=== PATIENT | male | born 1950 | race Caucasian/White ===

== ENCOUNTER 2017-04-24 19:21 | Inpatient (IN) | payer SELFPAY ==
--- NOTE | 2017-04-24 20:07 | PDOC ---
History of Present Illness - History of Present Illness Initial Comments: 04/24/17 21:07 Patient is a 67 year old male with significant medical hx of ulcerative colitis and nephrolithiasis who is presenting to the ED via EMS with two days of dizziness, unsteady gait, and recent falls. The patient states two days ago developing dizziness that is worse when hes standing but still present but not as severe when he is sitting still. Hes been having loss of balance as well and has been ambulating with a cane for support. Patient endorses several recent falls due to his symptoms. The patient complains of some nausea and vomiting over the past two days. Today he also developed parasthesias to his left hand and left leg. Patient notes that he broke his glasses recently and had to use an old pair with an outdated prescription; he suspects this is contributing to his dizziness. Denies any diaphoresis, palpitations, chest pain , shortness of breath, fever, or chills. Patient has not seen his PMD in several years. Not on any meds beside multivitamin <Sandy Morocho - Last Filed: 04/24/17 22:24> - General History Source: Patient Exam Limitations: No Limitations <Kristopher Singletary - Last Filed: 04/28/17 07:48> - General Chief Complaint: Lightheaded Stated Complaint: DIZZINESS Time Seen by Provider: 04/24/17 19:47 NIH Stroke Scale - Last Known Well Date/Time & Onset Date Last Known Well: 04/08/17 Time Last Known Well: 07:00 - Initial Evaluation Level of consciousness: Alert Ask patient the month and their age: Answers both correctly Ask patient to open & close eyes; make fist and let go: Obeys both correctly Best gaze (horizontal eye movement): Normal Visual field testing: No visual field loss Facial paresis (Show teeth/raise eyebrows/close eyes tight): Normal symmetrical movement Motor Function: Left Arm: Normal Motor Function: Right Arm: Normal (extends arm 90 (or 45) degrees for 10 seconds without drift Motor Function: Left Leg: Normal (extends leg 30 degrees for 5 seconds without drift) Motor Function: Right Leg: Normal (extends leg 30 degrees for 5 seconds without drift) Limb Ataxia: Present in one limb Sensory(Use pinprick test arms,legs,trunk,face/side to side): Mild to moderate decrease in sensation Best language (Describe picture, name items, read sentences): No Aphasia Dysarthria (read several words): Normal articulation Extinction and Inattention: No abnormality - Total Score NIH Stroke Scale Score: 2 <Kristopher Singletary - Last Filed: 04/28/17 07:48> tPA Exclusion Checklist 0-3hr - Time Elapsed Date last known well: 04/22/17 Time last known well: 07:00 Elaspsed time: 6 Day(s) and 0 Hour(s) and 47 Minutes - Thrombolytic Therapy Candidate Is the patient eligible for Thrombolytic Therapy?: No - Ineligibility reason(s) Reasons No tPA given: Outside of window - delayed arrival <HayderKristopher - Last Filed: 04/28/17 07:48> Past History <Sandy Morocho - Last Filed: 04/24/17 22:24> - Psycho/Social/Smoking Cessation Hx Suicidal Ideation: No Smoking History: Never smoked Have you smoked in the past 12 months: No Information on smoking cessation initiated: No Hx Alcohol Use: No Drug/Substance Use Hx: No <Kristopher Singletary - Last Filed: 04/28/17 07:48> - Past Medical History Allergies/Adverse Reactions: Allergies Allergy/AdvReac Type Severity Reaction Status Date / Time No Known Allergies Allergy Verified 04/24/17 20:32 Home Medications: Ambulatory Orders Multivits,Ca,Min/Iron/FA/Lycop [Centrum Men's Tablet] 1 tab PO DAILY 04/25/17 Review of Systems - Review of Systems Comments:: 04/24/17 21:08 CONSTITUTIONAL: No reported: Fever, Chills, Diaphoresis, Generalized Weakness, Malaise, Loss of Appetite HEENT: No reported: Rhinorrhea, Nasal Congestion, Throat Pain, Throat Swelling, Difficulty Swallowing, Mouth Swelling, Ear Pain, Eye Pain, Visual Changes CARDIOVASCULAR: No reported: Chest Pain, Syncope, Palpitations, Irregular Heart Rate, Lightheadedness, Peripheral Edema RESPIRATORY: No reported: Cough, Shortness of Breath, SOB with Exertion, Orthopnea, Wheezing , Stridor, Hemoptysis GASTROINTESTINAL: Reported: Nausea, Vomiting No reported: Abdominal pain, Abdominal Distension, Diarrhea, Constipation, Melena, Hematochezia GENITOURINARY: No reported: Dysuria, Frequency, Urgency, Hesitancy, Flank Pain, Genital Pain MUSCULOSKELETAL: No reported: Myalgia, Arthralgia, Joint Swelling, Back pain, Neck Pain SKIN: No reported: Rash, Itching, Pallor HEMEATOLOGIC/IMMUNOLOGIC: No reported: Easy Bleeding, Easy Bruising, Lymphadenopathy, Frequent infections ENDOCRINE: No reported: Unexplained Weight Gain, Unexplained Weight Loss, Heat Intolerance , Cold Intolerance NEUROLOGIC: Present: Dizziness, Unsteady Gait, Loss of Balance, Frequent Falls, Left Hand and Foot Tingling No reported: Headache, Focal Weakness, Vertigo, Lightheadedness, Seizure, Mental Status Changes, Incontinence PSYCHIATRIC: No reported: Anxiety, Depression <Sandy Morocho - Last Filed: 04/24/17 22:24> *Physical Exam - Vital Signs Last Vital Signs Temp Pulse Resp BP Pulse Ox 98.1 F 97 H 17 167/108 98 04/24/17 19:34 04/24/17 20:40 04/24/17 20:40 04/24/17 20:40 04/24/17 20:40 - Physical Exam Comments: 04/24/17 21:08 GENERAL: The patient is awake, alert, Nontoxic - in no acute distress, dischevelled appearing HEAD: Normocephalic, atraumatic. EYES: extraocular movements intact, sclera anicteric, conjunctiva clear. ENT: Normal voice, Moist mucous membranes. NECK: Normal range of motion, supple LUNGS: Breath sounds equal, clear to auscultation bilaterally. No wheezes, no rhonchi, no rales. HEART:tachycardic, ABDOMEN: Soft, nontender, normoactive bowel sounds. No guarding, no rebound. . No CVA tenderness EXTREMITIES: Normal range of motion, no edema. PSYCH: Normal mood, normal affect. SKIN: Warm, Dry, normal turgor, NEURO: Mental status: The patient is oriented x3. Cranial nerves: Cranial nerves II through XII are intact Motor: The upper extremities are 5 over 5 in all muscle groups. The lower extremities are 5 over 5 in all muscle groups. Negative pronator drift Sensation: Sensation is deminished on LUE/LLE Cerebellar: Voflav-[id number]-grtk is abnormal on LUE. rapid alternating movements are relatively normal Gait: deferred <Sandy Morocho - Last Filed: 04/24/17 22:24> - Vital Signs Last Vital Signs Temp Pulse Resp BP Pulse Ox 98.1 F 114 H 19 178/105 96 04/24/17 19:34 04/24/17 19:34 04/24/17 19:34 04/24/17 19:34 04/24/17 19:34 <Kristopher Singletary - Last Filed: 04/28/17 07:48> Heart Score/ECG Review - ECG Impressions Comment:: 04/25/17 00:16 Twelve-lead EKG was performed and reviewed by me. There is normal sinus rhythm Rate of 111 Left axis deviation Right bundle-branch block Left ventricular hypertrophy <HayderKristopher guerrier - Last Filed: 04/28/17 07:48> ED Treatment Course - LABORATORY CBC & Chemistry Diagram: 04/24/17 20:00 04/24/17 20:55 - ADDITIONAL ORDERS Additional order review: Laboratory Results 04/24/17 04/24/17 20:00 20:00 INR 1.03 Sodium Cancelled Potassium Cancelled Chloride Cancelled Carbon Dioxide Cancelled Anion Gap Cancelled BUN Cancelled Creatinine Cancelled Creat Clearance w eGFR Cancelled Random Glucose Cancelled Calcium Cancelled Magnesium Cancelled Total Bilirubin Cancelled AST Cancelled ALT Cancelled Alkaline Phosphatase Cancelled Creatine Kinase Cancelled Troponin I Cancelled B-Natriuretic Peptide Cancelled Total Protein Cancelled Albumin Cancelled TSH Cancelled 04/24/17 20:00 RBC 6.71 H MCV 89.1 MCHC 33.2 RDW 14.6 MPV 9.0 Neutrophils % 80.6 Lymphocytes % 9.5 Monocytes % 8.9 Eosinophils % 0.0 Basophils % 1.0 - RADIOLOGY Radiograph Interpretation: 04/24/17 21:10 Chest X-Ray Impression: No acute disease. Reported By: Ike Griffith MD 04/24/17 22:[address] Impression: Left lacunar infarct of uncertain chronicity. No evidence of intracranial hemorrhage. Please see discussion. Reported By: Ike Griffith MD - Medications Given in the ED: ED Medications Discontinued Medications Generic Name Dose Route Start Last Admin Trade Name Freq PRN Reason Stop Dose Admin Sodium Chloride 1,000 mls @ 1,000 mls/hr 04/24/17 20:29 04/24/17 20:33 Normal Saline - IV 04/24/17 21:28 1,000 mls/hr .Q1H ONE Administration <Sandy Morocho - Last Filed: 04/24/17 22:24> - LABORATORY CBC & Chemistry Diagram: 04/28/17 05:20 04/28/17 05:20 <Kristopher Singletary - Last Filed: 04/28/17 07:48> Medical Decision Making - Medical Decision Making 04/24/17 20:17 67y M no known pmhx, presents with feeling persistently dizzy the psat few days , noted L arm/leg tingling since awakening this morning. on exam pt noted slightly tachy to 110s, bp slightly hypertensive, his exam noted for decreased sensation of LLE and LUE, + nystagmus, abnormal finger to nose on LUE. suspect cerebellar cva based on exam not TPA candidate due to time of onset prior to arrival will obtain ct head, labs monica l give asa if no blood on CT head anticipate admission for further management 04/24/17 21:[address] notable for lacunar infarct of unknown chornicity will admit for cva workup pt given asa 04/24/17 21:[address] samuel and dr. hernandez will admit to [facility] agree with admission for further management Case discussed in detail with admitting physician including history, physical exam and ancillary studies. Admitting physician has assumed care for the patient, will follow all pending diagnostics and will complete the evaluation and treatment. 04/24/17 22:55 pts labs noted for leukocyotisis and elevated hgb/hct - suspect dehydration/ hemoconcentration cbmp noted for elev creatinine after 1L of NS pts HR improved to the 80s. A portion of this note was documented by scribe services under my direction. I have reviewed the details of the note, within reason, and agree with the documentation with the following case summary and management plan written by me <Kristopher Singletary - Last Filed: 04/28/17 07:48> *DC/Admit/Observation/Transfer - Attestations Scribe Attestion: 04/24/17 21:09 Documentation prepared by Sandy Morocho, acting as medical care evaluation specialist for Kristopher Singletary MD. <Sandy Morocho - Last Filed: 04/24/17 22:24> - Discharge Dispostion Admit: Yes <Kristopher Singletary - Last Filed: 04/28/17 07:48> Diagnosis at time of Disposition: Acute renal insufficiency, Dehydration CVA (cerebral vascular accident) Qualifiers: CVA mechanism: unspecified Qualified Code(s): I63.9 - Cerebral infarction, unspecified
[2017-04-24] MEDS ORDERED: SODIUM CHLORIDE 1,000 ML IV ONE ×2 (20:29→20:35)
[2017-04-24 20:33] LABS: MCH 29.6 pg (25.7-33.7); MCHC 33.2 g/dl (32.0-35.9); MEAN CELL VOLUME 89.1 fl (80-96); NEUTROPHILS 80.6 % (42.8-82.8); PLATELET COUNT 341 K/MM3 (134-434); RDW 14.6 % (11.9-15.9)
[2017-04-24 20:56] LABS: INR 1.03 (0.82-1.09); PROTHROMBIN TIME (PATIENT) 11.3 SEC (9.98-11.88)
[2017-04-24] MEDS ORDERED: ASPIRIN 81 MG CHEWABLE TABLETS PO ONE (21:16)
[2017-04-24] MEDS ORDERED: ASPIRIN 81 MG CHEWABLE TABLETS ONE (21:34)
--- NOTE | 2017-04-24 21:37 | PN ---
<Yudith Patel - Last Filed: 04/24/17 21:37> Teaching Attending Note Name of Resident: Ankit Winston <Angelina Reilly - Last Filed: 04/24/17 23:37> Teaching Attending Note ATTENDING PHYSICIAN STATEMENT I saw and evaluated the patient. I reviewed the resident's note and discussed the case with the resident. I agree with the resident's findings and plan as documented. SUBJECTIVE: 67 yo M presents with dizziness, blurry vision, full body weakness for 2 days. Patient denies modifying factors. Patient also notes he has fallen 3 times in past two days. Denies LOC and head trauma. Patient also endorses decreased oral intake. Patient also notes this is the first time he has ever experienced these symptoms. Due to his ulcerative colitis, patient notes he typically has diarrhea 3x a day. Patient denies changes in weight. OBJECTIVE: Last Vital Signs Temp Pulse Resp BP Pulse Ox 98.1 F 90 24 185/93 98 04/24/17 19:34 04/24/17 22:37 04/24/17 22:37 04/24/17 22:37 04/24/17 22:37 GENERAL: Awake, alert, and fully oriented, in no acute distress HEENT: Atraumatic. PERRLA, Nystagmus to the R. Moist mucosa. No JVD LUNGS: No distress, speaks full sentences, clear to auscultation bilaterally HEART: Regular rate and rhythm, normal S1 and S2, 2/6 systolic murmur, rubs or gallops, peripheral pulses normal and equal bilaterally. ABDOMEN: Soft, nontender, normoactive bowel sounds. No guarding, no rebound. No masses EXTREMITIES: Normal inspection, Normal range of motion, no edema. No clubbing or Cyanosis. NEUROLOGICAL: Cranial nerves II through XII grossly intact. Normal speech, normal gait, no focal sensorimotor deficits SKIN: Warm, Dry, normal turgor, no rashes or lesions noted. CBCD WBC 20.0 K/mm3 (4.0-10.0) H 04/24/17 20:00 RBC 6.71 M/mm3 (4.00-5.60) H 04/24/17 20:00 Hgb 19.8 GM/dL (11.7-16.9) H 04/24/17 20:00 Hct 59.8 % (35.4-49) H 04/24/17 20:00 MCV 89.1 fl (80-96) 04/24/17 20:00 MCHC 33.2 g/dl (32.0-35.9) 04/24/17 20:00 RDW 14.6 % (11.9-15.9) 04/24/17 20:00 Plt Count 341 K/MM3 (134-434) 04/24/17 20:00 MPV 9.0 fl (7.5-11.1) 04/24/17 20:00 CMP Sodium 143 mmol/L (136-145) 04/24/17 20:55 Potassium 3.6 mmol/L (3.5-5.1) 04/24/17 20:55 Chloride 107 mmol/L (98-107) 04/24/17 20:55 Carbon Dioxide 23 mmol/L (21-32) 04/24/17 20:55 Anion Gap 13 (8-16) 04/24/17 20:55 BUN 27 mg/dL (7-18) H 04/24/17 20:55 Creatinine 2.0 mg/dL (0.7-1.3) H 04/24/17 20:55 Creat Clearance w eGFR 33.39 (>60) 04/24/17 20:55 Calcium 10.2 mg/dL (8.5-10.1) H 04/24/17 20:55 Total Bilirubin 0.6 mg/dL (0.2-1.0) 04/24/17 20:55 AST 31 U/L (15-37) 04/24/17 20:55 ALT 27 U/L (12-78) 04/24/17 20:55 Alkaline Phosphatase 68 U/L (45-117) 04/24/17 20:55 Total Protein 7.8 g/dl (6.4-8.2) 04/24/17 20:55 Albumin 3.8 g/dl (3.4-5.0) 04/24/17 20:55 ASSESSMENT AND PLAN: 1.) CVA -Cardiac US -Echo -Aspirin 81 daily -Not a candidate for TPA -HGB A1C -Neurology consult -Monitor vitals -Repeat CBC -IVF -MRI/MRA -Lipid profile 2.) HTN -Ang inhibitor 3.) CHANTE -IVF 4.) Hx of ulcerative colitis -GI consult -Sulfasalazine 1g Q8 Documentation is prepared by Angelina Reilly acting as medical claims assistant for Yudith Patel M.D.
[2017-04-24 21:49] LABS: ALBUMIN 3.8 g/dl (3.4-5.0); ALK PHOS 68 U/L (45-117); ANION GAP 13 (8-16); BILIRUBIN,TOTAL 0.6 mg/dL (0.2-1.0); CALCIUM 10.2 mg/dL (8.5-10.1); CO2 23 mmol/L (21-32); GLUCOSE,RANDOM 117 mg/dL (74-106); SGOT/AST 31 U/L (15-37); SGPT/ALT 27 U/L (12-78); TOT PROT 7.8 g/dl (6.4-8.2)
--- NOTE | 2017-04-25 00:57 | HP ---
CHIEF COMPLAINT: dizziness and generalized weakness PCP: No PCP HISTORY OF PRESENT ILLNESS: 67 y/o M w/PMH of ulcerative colitis and nephrolithiasis presents to the ER with 2 days of dizziness and generalized weakness. Pt states the symptoms started all of a sudden and have remained the same since. He states on the phone his neighbors stated his speech sounded slurred but he doesn't feel like it is at this time. No changes to dizziness based on position noted. Dizziness is described as both the room spinning and feeling dizzy himself. This is the first time he has had these symptoms. He has had some parasthesias in LUE and LLE starting today too. He states his vision may also be contributed to his dizziness as he is wearing 15 year old glasses because his latest pair recently broke. He has fallen 3 times due to the dizziness but has not hit his head or loss consciousness. He has landed on his butt for the falls. He does not favor one side when he falls. He has not eaten or drank much since symptoms began because he is afraid of falling when he gets up. He denies nausea but states he has been spitting up bitter yellow fluid. He denies CP, palpitations, SOB, change in hearing, ringing in ears, DOMINGUEZ, peripheral swelling, fever, chills, sick contacts, recent travel. Pt is on no meds. Pt has not followed w/ a doctor in the last 8 or so years. ER course was notable for: (1) EKG, Head CT, CXR, ASA (2) (3) Recent Travel: denies PAST MEDICAL HISTORY:ulcerative colitis and nephrolithiasis PAST SURGICAL HISTORY: denies Social History: Smoking: smoked for approximately 1 year as a teenager. Alcohol: never Drugs: never Family History: Brother: DM Allergies No Known Allergies Allergy (Verified 04/24/17 20:32) HOME MEDICATIONS: Home Medications Medication Instructions Recorded NK [No Known Home Medication] 04/24/17 REVIEW OF SYSTEMS CONSTITUTIONAL: Absent: fever, chills, diaphoresis, generalized weakness, weight change HEENT: Absent: throat pain, throat swelling, hearing changes, tinnitus, visual changes CARDIOVASCULAR: Absent: chest pain, syncope, palpitations, irregular heart rate RESPIRATORY: Absent: cough, shortness of breath, dyspnea with exertion, orthopnea GASTROINTESTINAL: Absent: abdominal pain, nausea, vomiting, diarrhea, constipation, hematochezia GENITOURINARY: Absent: dysuria, frequency, urgency, hesitancy, hematuria NEUROLOGIC: +parasthesias, dizziness Absent: headache, unsteady gait, seizure, mental status changes, bladder or bowel incontinence PSYCHIATRIC: Absent: anxiety, depression, suicidal or homicidal ideation, hallucinations. PHYSICAL EXAMINATION Vital Signs - 24 hr 04/24/17 22:37 Pulse Rate [ 90 Apical] Respiratory 24 Rate Blood Pressure 185/93 [Right Arm] O2 Sat by Pulse 98 Oximetry (%) GENERAL: Awake, alert, and fully oriented, in no acute distress. HEAD: Normal with no signs of trauma. EYES: +nystagmus to the R, Pupils equal, round and reactive to light, extraocular movements intact, sclera anicteric, conjunctiva clear. No lid lag. EARS, NOSE, THROAT: Ears normal, nares patent, oropharynx clear without exudates. Moist mucous membranes. NECK: Normal range of motion, supple without lymphadenopathy, no carotid bruits , no thyromegaly. LUNGS: Breath sounds equal, clear to auscultation bilaterally. No wheezes, and no crackles. No accessory muscle use. HEART: +2/6 systolic murmur best heard in aortic region. Regular rate and rhythm , normal S1 and S2, rub or gallop. ABDOMEN: Soft, nontender, not distended, normoactive bowel sounds, no guarding, no rebound, no masses. No hepatomegaly or splenomegaly. MUSCULOSKELETAL: Normal range of motion at all joints. No bony deformities or tenderness. No CVA tenderness. LOWER EXTREMITIES: 2+ pulses, warm, well-perfused. No calf tenderness. No peripheral edema. 5/5 upper and lower extremity strength. NEUROLOGICAL: Normal speech. Gait not observed. "increased sensation in LUE and LLE". PSYCHIATRIC: Cooperative. Good eye contact. Appropriate mood and affect. SKIN: Warm, dry CBCD WBC 20.0 K/mm3 (4.0-10.0) H 04/24/17 20:00 RBC 6.71 M/mm3 (4.00-5.60) H 04/24/17 20:00 Hgb 19.8 GM/dL (11.7-16.9) H 04/24/17 20:00 Hct 59.8 % (35.4-49) H 04/24/17 20:00 MCV 89.1 fl (80-96) 04/24/17 20:00 MCHC 33.2 g/dl (32.0-35.9) 04/24/17 20:00 RDW 14.6 % (11.9-15.9) 04/24/17 20:00 Plt Count 341 K/MM3 (134-434) 04/24/17 20:00 MPV 9.0 fl (7.5-11.1) 04/24/17 20:00 CMP Sodium 143 mmol/L (136-145) 04/24/17 20:55 Potassium 3.6 mmol/L (3.5-5.1) 04/24/17 20:55 Chloride 107 mmol/L (98-107) 04/24/17 20:55 Carbon Dioxide 23 mmol/L (21-32) 04/24/17 20:55 Anion Gap 13 (8-16) 04/24/17 20:55 BUN 27 mg/dL (7-18) H 04/24/17 20:55 Creatinine 2.0 mg/dL (0.7-1.3) H 04/24/17 20:55 Creat Clearance w eGFR 33.39 (>60) 04/24/17 20:55 Random Glucose 117 mg/dL (74-106) H 04/24/17 20:55 Calcium 10.2 mg/dL (8.5-10.1) H 04/24/17 20:55 Total Bilirubin 0.6 mg/dL (0.2-1.0) 04/24/17 20:55 AST 31 U/L (15-37) 04/24/17 20:55 ALT 27 U/L (12-78) 04/24/17 20:55 Alkaline Phosphatase 68 U/L (45-117) 04/24/17 20:55 Total Protein 7.8 g/dl (6.4-8.2) 04/24/17 20:55 Albumin 3.8 g/dl (3.4-5.0) 04/24/17 20:55 CARDIAC ENZYMES Creatine Kinase Cancelled 04/24/17 20:00 Troponin I Cancelled 04/24/17 20:00 Urine Test Results Urine Color Yellow 04/25/17 00:57 Urine Appearance Clear 04/25/17 00:57 Urine pH 5.0 (5.0-8.0) 04/25/17 00:57 Urine Protein 3+ (NEGATIVE) H 04/25/17 00:57 Urine Glucose (UA) Negative (NEGATIVE) 04/25/17 00:57 Urine Ketones Trace (NEGATIVE) H 04/25/17 00:57 Urine Blood 1+ (NEGATIVE) H 04/25/17 00:57 Urine Nitrite Negative (NEGATIVE) 04/25/17 00:57 Urine Bilirubin Negative (NEGATIVE) 04/25/17 00:57 Ur Leukocyte Esterase Negative (NEGATIVE) 04/25/17 00:57 Urine RBC 6 /hpf (0-3) 04/25/17 00:57 Urine WBC 3 /hpf (3-5) 04/25/17 00:57 Urine Mucus Rare 04/25/17 00:57 CBC, BMP 04/25/17 00:45 Imaging: Head CT: Left lacunar infarct of uncertain chronicity. No evidence of intracranial hemorrhage. CXR: No acute pathology. EKG: Sinus tachy @ 111 bpm, PACs, Left atrial enlargement, Left axis deviation, RBBB Active Medications Aspirin (Ecotrin -) 81 mg PO DAILY MARÍA Atorvastatin Calcium (Lipitor -) 40 mg PO HS MARÍA Sodium Chloride (Normal Saline -) 1,000 mls @ 75 mls/hr IV ASDIR MARÍA ASSESSMENT/PLAN: 67 y/o M w/PMH of ulcerative colitis and nephrolithiasis presents to the ER with 2 days of dizziness. Found to have L lacunar infarct of uncertain chronicity. -CVA -L lacunar infarct of uncertain chronicity. -MRI/MRA of brain and neck in AM -Echo -f/u TSH, lipids, A1C -ASA 81 mg PO qd, atorvastatin 40 mg po qhs -Neuro consulted -PT and Speech and swallow eval -Rapid swallow eval - pt with no issues drinking sips of water, no coughing after drinking water, no gagging. -Hypertensive emergency with likely hx of uncontrolled HTN. -With neurological findings, will allow for permissive HTN at this time. -Keep systolic above 160 at this time -178/105 on presentation, currently 185/93 -do not decrease by more than 25% in 24 hours -Lisinopril 2.5 mg PO once ordered, monitor kidney function. -can continue lisinopril at 2.5 mg po qd if kidney function improving with IVF -CHANTE -No baseline Cr on file -Monitor -NS @ 75ml/hr -decrease if HTN persists -Leukocytosis -Most likely due to hemoconcentration from decreased PO intake; improved s/p 1 L NS in ER -CBC stat ordered -no current signs of infection, UA neg -NS @ 75 ml/hr -Polycythemia -Likely due to hemo-concentration from decreased PO intake; improved s/p 1 L NS in ER -CBC stat ordered, monitor -NS @ 75 ml/hr -Ulcerative colitis -Pt on no meds at home. Will start on sulfasalazine 1g PO q8h -Will need GI f/u as outpatient including colonoscopy -DVT ppx -Heparin 5000 units SQ q8H -FEN -NS @ 75ml/hr -Monitor electrolytes -Cardiac diet -Dispo: -Admit to tele Visit type - Emergency Visit Emergency Visit: Yes ED Registration Date: 04/24/17 Care time: The patient presented to the Emergency Department on the above date and was hospitalized for further evaluation of their emergent condition. - New Patient This patient is new to me today: Yes Date on this admission: 04/25/17 - Critical Care Critical Care patient: No
[2017-04-25] MEDS: SODIUM CHLORIDE 1,000 ML IV SCH (01:08)
[2017-04-25 01:27] LABS: MCH 29.7 pg (25.7-33.7); MCHC 33.4 g/dl (32.0-35.9); MEAN CELL VOLUME 89.1 fl (80-96); MEAN PLT VOLUME 8.8 fl (7.5-11.1); PLATELET COUNT 254 K/MM3 (134-434); RDW 14.6 % (11.9-15.9); WHITE BLOOD COUNT 17.2 K/mm3 (4.0-10.0)
[2017-04-25 01:30] LABS: URINE APPEARANCE CLEAR; URINE BILIRUBIN NEGATIVE (NEGATIVE); URINE BLOOD 1+ (NEGATIVE); URINE COLOR YELLOW; URINE GLUCOSE (UA) NEGATIVE (NEGATIVE); URINE KETONE TRACE (NEGATIVE); URINE LEUK ESTERASE NEGATIVE (NEGATIVE); URINE NITRITE NEGATIVE (NEGATIVE); URINE PROTEIN 3+ (NEGATIVE); URINE UROBILINOGEN NEGATIVE E.U./dl (0.2-1.0)
[2017-04-25 01:32] LABS: URINE HYALINE CAST 13 /lpf; URINE MUCUS RARE; URINE RBC 6 /hpf (0-3); URINE WBC 3 /hpf (3-5)
[2017-04-25 02:05] VITALS: BMI 30.7
[2017-04-25] MEDS ORDERED: LISINOPRIL 5 MG TABLET (FP) PO ONE (03:24)
[2017-04-25] MEDS: HEPARIN NA (PORCINE) 5,000 UNITS/ML 1ML VIAL SQ SCH ×3 (06:20→21:03)
[2017-04-25] MEDS ORDERED: PT OWN MED DRAWER 7, Y5N ONE (06:27)
[2017-04-25 06:33] LABS: BASOPHIL 0.9 % (0-2.0); EOSINOPHIL 0.6 % (0-4.5); MCH 29.9 pg (25.7-33.7); MCHC 33.3 g/dl (32.0-35.9); MEAN CELL VOLUME 89.8 fl (80-96); NEUTROPHILS 76.2 % (42.8-82.8); PLATELET COUNT 246 K/MM3 (134-434); RDW 14.7 % (11.9-15.9); WHITE BLOOD COUNT 15.2 K/mm3 (4.0-10.0)
[2017-04-25 06:55] LABS: ALBUMIN 3.3 g/dl (3.4-5.0); ANION GAP 8 (8-16); CALCIUM 8.8 mg/dL (8.5-10.1); CO2 25 mmol/L (21-32); GLUCOSE,RANDOM 90 mg/dL (74-106); MAGNESIUM 1.8 mg/dL (1.8-2.4)
[2017-04-25 07:05] LABS: ALK PHOS 60 U/L (45-117); BILIRUBIN,TOTAL 0.8 mg/dL (0.2-1.0); CHOLESTEROL 190 mg/dL (50-200); CREATININE 1.4 mg/dL (0.7-1.3); LDL CHOLESTEROL (ONLY SJRH) 135 mg/dL (5-100); SGOT/AST 30 U/L (15-37); SGPT/ALT 24 U/L (12-78); THYROID STIMULATING HORMONE 1.45 uIU/ml (0.358-3.74); TOT PROT 6.6 g/dl (6.4-8.2)
[2017-04-25] MEDS: ASPIRIN COATED 81 MG TABLET.EC PO SCH (09:23)
--- NOTE | 2017-04-25 10:27 | PN ---
Physical Exam: SUBJECTIVE: Patient stated that he's been having worsening dizziness since Friday and he's fallen twice on his buttocks already. He's too afraid to get up to do anything including drinking water or eating food. Denies hearing loss, tinnitus, decreased vision, chest pain, palpitation, n/v, fever or chills. OBJECTIVE: Vital Signs Period Temp Pulse Resp BP Sys/Herndon Pulse Ox Last 24 Hr 97.3 F-98.2 F 68-90 20-24 154-187/89-102 95-98 GENERAL: AAO x 3, speak in full sentences, in no acute distress. HEAD: NC, AT EYES: pupils equal and reactive to light, horizontal nystagmus, sclera anicteric , conjunctiva clear ENT: Ears normal, nares patent, oropharynx clear without exudates, moist mucous membranes, uvula deviates to L NECK: Trachea midline, full range of motion, supple. LUNGS: CTAB HEART:RRR, S1, S2 without murmur, rub or gallop. ABDOMEN: Soft, nontender, nondistended, normoactive bowel sounds, no guarding, no rebound, no hepatosplenomegaly, no masses. EXTREMITIES: no edema, 4.5/5 in strength in LE and decreased sensation in LLE, full strength and intact sensation in R extremities NEUROLOGICAL: CN 5-12 intact, Normal speech, unsteady gait. PSYCH: Normal mood, normal affect. SKIN: Warm, dry, normal turgor, no rashes or lesions noted CBCD WBC 15.2 K/mm3 (4.0-10.0) H 04/25/17 05:20 RBC 5.78 M/mm3 (4.00-5.60) H 04/25/17 05:20 Hgb 17.3 GM/dL (11.7-16.9) H 04/25/17 05:20 Hct 51.9 % (35.4-49) H 04/25/17 05:20 MCV 89.8 fl (80-96) 04/25/17 05:20 MCHC 33.3 g/dl (32.0-35.9) 04/25/17 05:20 RDW 14.7 % (11.9-15.9) 04/25/17 05:20 Plt Count 246 K/MM3 (134-434) 04/25/17 05:20 MPV 9.0 fl (7.5-11.1) 04/25/17 05:20 CMP Sodium 142 mmol/L (136-145) 04/25/17 05:20 Potassium 3.9 mmol/L (3.5-5.1) 04/25/17 05:20 Chloride 109 mmol/L (98-107) H 04/25/17 05:20 Carbon Dioxide 25 mmol/L (21-32) 04/25/17 05:20 Anion Gap 8 (8-16) 04/25/17 05:20 BUN 22 mg/dL (7-18) H 04/25/17 05:20 Creatinine 1.4 mg/dL (0.7-1.3) H D 04/25/17 05:20 Creat Clearance w eGFR 50.40 (>60) 04/25/17 05:20 Calcium 8.8 mg/dL (8.5-10.1) 04/25/17 05:20 Total Bilirubin 0.8 mg/dL (0.2-1.0) D 04/25/17 05:20 AST 30 U/L (15-37) 04/25/17 05:20 ALT 24 U/L (12-78) 04/25/17 05:20 Alkaline Phosphatase 60 U/L (45-117) 04/25/17 05:20 Total Protein 6.6 g/dl (6.4-8.2) 04/25/17 05:20 Albumin 3.3 g/dl (3.4-5.0) L 04/25/17 05:20 Active Medications Generic Name Dose Route Start Last Admin Trade Name Freq PRN Reason Stop Dose Admin Aspirin 81 mg 04/25/17 10:00 04/25/17 09:23 Ecotrin - PO 81 mg DAILY MARÍA Administration Atorvastatin Calcium 40 mg 04/25/17 22:00 Lipitor - PO HS MARÍA Heparin Sodium (Porcine) 5,000 unit 04/25/17 06:00 04/25/17 06:20 Heparin - SQ 5,000 unit TID MARÍA Administration Sodium Chloride 1,000 mls @ 75 mls/hr 04/25/17 00:30 04/25/17 01:08 Normal Saline - IV 75 mls/hr ASDIR MARÍA Administration Pneumococcal 13-Valent Conj Vacc 0.5 ml 04/25/17 01:48 Prevnar 13 Syringe - IM 04/25/17 01:49 .ONCE ONE Sulfasalazine 1,000 mg 04/25/17 06:00 04/25/17 06:22 Azulfidine En-Tabs - PO 1,000 mg TID MARÍA Administration IMAGING CT head on 04/24: L lacunar infarct of uncertain chronicity ECG on 04/24: Sinus tachy @ 111 bpm, PACs, LAE, LAD, RBBB ASSESSMENT/PLAN: 67 yo M admitted to the hospital for dizziness. Dizziness - CVA vs. vertigo vs. dehydration * positive finding on CT head * pt reported furniture floating * poor fluid intake in days * no hearing loss - f/u brain MRI/MRA, ECHO - Permissive HTN (< 220/120) - Cont. asa 81mg and lipitor 80mg - S&S and PT - Neurology consult Ulcerative colitis, chronic - Daily diarrhea x 3 - Started on sulfasalazine Acute kidney injury - Unknown baseline - Improved significantly after hydration - Likely pre-renal 2/2 dehydration - Cont. to monitor Leukocytosis and polycythemia - Likely due to hemoconcentration FEN - Cont. IVF 75cc/hr - Normal lytes - NPO, await S&S Prophylaxis - DVT: heparin SQ - GI: not indicated Dispo - Awaiting CVA workup - Cont. to monitor on tele Visit type - Emergency Visit Emergency Visit: Yes ED Registration Date: 04/24/17 Care time: The patient presented to the Emergency Department on the above date and was hospitalized for further evaluation of their emergent condition. - New Patient This patient is new to me today: Yes Date on this admission: 04/26/17 - Critical Care Critical Care patient: No
--- NOTE | 2017-04-25 10:32 | EKG ---
Test Reason : Blood Pressure : / mmHG Vent. Rate : 111 BPM Atrial Rate : 111 BPM P-R Int : 150 ms QRS Dur : 136 ms QT Int : 356 ms P-R-T Axes : 042 -41 -10 degrees QTc Int : 484 ms SINUS TACHYCARDIA WITH PREMATURE ATRIAL COMPLEXES POSSIBLE LEFT ATRIAL ENLARGEMENT LEFT AXIS DEVIATION RIGHT BUNDLE BRANCH BLOCK LEFT VENTRICULAR HYPERTROPHY NONSPECIFIC ST ABNORMALITY ABNORMAL ECG NO PREVIOUS ECGS AVAILABLE Confirmed by DIEUDONNE NEIL MD ([id number]) on 04/25/2017 10:32:30 AM Referred By: Confirmed By:DIEUDONNE NEIL MD
[2017-04-25] MEDS ORDERED: PNEUMOC 13-VAL CONJ-DIP CRM/PF 0.5 ML DISP.SYRIN IM ONE (14:00)
--- NOTE | 2017-04-25 16:37 | CON.NEURO ---
Consult - History of Present Illness History of Present Illness: 67 year old male history of nephrolithiasis and colitis and came to ed for dizziness and generalized weakness. his friend noticed taht his pseech was slurred. he felt dizzy and feel spinning . he is also feeling numb on left upper and lower extremity. inital ct scan was done it was normal and he has not seen any doctor in 8 years. He is feeling better since he is in tele and waiting for mri. - Alcohol/Substance Use Hx Alcohol Use: No - Smoking History Smoking history: Former smoker Have you smoked in the past 12 months: No If you are a former smoker, when did you quit?: as a teenager Home Medications - Allergies Allergies/Adverse Reactions: Allergies Allergy/AdvReac Type Severity Reaction Status Date / Time No Known Allergies Allergy Verified 04/24/17 20:32 - Home Medications Home Medications: Ambulatory Orders Multivits,Ca,Min/Iron/FA/Lycop [Centrum Men's Tablet] 1 tab PO DAILY 04/25/17 Physical Exam-Neuro Vital Signs: Vital Signs Temperature 98 F 04/25/17 13:35 Pulse Rate 66 04/25/17 13:35 Respiratory Rate 20 04/25/17 13:35 Blood Pressure 146/86 04/25/17 13:35 O2 Sat by Pulse Oximetry (%) 95 04/25/17 09:59 Labs: CBC, BMP 04/25/17 05:20 04/25/17 05:20 INR, PTT INR 1.03 (0.82-1.09) 04/24/17 20:00 NIH Stroke Scale - Total Score NIH Stroke Scale Score: 0 Imaging - Results Cat Scan: Report Reviewed Assessment/Plan left sided weakness 67 year old male history of nephrolithiasis and colitis and came to ed for dizziness and generalized weakness. his friend noticed taht his pseech was slurred. he felt dizzy and feel spinning . he is also feeling numb on left upper and lower extremity. inital ct scan was done it was normal and he has not seen any doctor in 8 years. He is feeling better since he is in tele and waiting for mri. Past Medical History as above . No known allergy Neurological Examiantion Alert oriented x 3, cranial nerve intact there is nystagmus on right side , there is dysmetria on left upper extremity there is mild left sided pronator drift, hang process improvement specialist is 5/5 lower extermity strength is normal sensation is diminished ion left side ct scan unremarkable Assessment- suspect brain stem /cerebellum stroke plan continue aspirin and statin bp monitoring neuro check swallow, pt and dvt prophylaxis Carotid ultrasound mri of brain thanks for consult Alf Vasquez MD
--- NOTE | 2017-04-25 17:11 | PN ---
Teaching Attending Note Name of Resident: Yuval Molina ATTENDING PHYSICIAN STATEMENT I saw and evaluated the patient. I reviewed the resident's note and discussed the case with the resident. I agree with the resident's findings and plan as documented. SUBJECTIVE: Dizziness is improving. OBJECTIVE: Vital Signs Period Temp Pulse Resp BP Sys/Herndon Pulse Ox Last 24 Hr 97.3 F-98.2 F 66-114 17-24 146-187/86-108 95-98 HEART: S1S2, RRR LUNGS: Clear ABDOMEN: Soft, non-tender, non-distended, normal BS EXTREMITIES: No edema NEUROLOGICAL: Alert, oriented, strength 5/5 in all extremities, sensation decreased in LLE ASSESSMENT AND PLAN: This is a 67 year old man with a history of ulcerative colitis, nephrolithiasis who presented to the ER with dizziness x 2 days. 1. Possible acute cerebellar CVA with dizziness - Head CT shows lacunar infarct of left caudate nucleus - Echocardiogram shows low normal LVEF, mild TR, trace to mild AR, mild VT - MRI/MRA of neck and brain - Continue aspirin, Lipitor - Physical therapy 2. Hypertensive emergency - Improved 3. Uncontrolled HTN 4. Acute kidney injury - Likely secondary to poor oral intake - Improving with IV fluid 5. Probable stage 3 CKD 6. Leukocytosis - Likely reactive with hemoconcentration from poor oral intake - No evidence of infection - Improving with IV fluid 7. Polycythemia - Likely secondary to hemoconcentration from poor oral intake - Improving with IV fluid 8. Ulcerative colitis - Sulfasalazine started
--- NOTE | 2017-04-25 17:49 | CONSULT ---
Admitting History and Physical - Smoking History Smoking history: Former smoker Have you smoked in the past 12 months: No If you are a former smoker, when did you quit?: as a teenager - Alcohol/Substance Use Hx Alcohol Use: No History - Admission Reason For Visit: CVA - Hearing Hearing: Normal Hearing Aide: No Speech Evaluation - Communication Primary Language: ARMENIAN Communication: Yes: Within Normal Limits Oral Expression Ability: Yes: No Impairment - Speech Production Apraxia: No Able to Make Needs Known: Yes: WNL Intelligibility: Yes: WNL - Speech Characteristics Voice Loudness: Normal Voice Pitch: Yes: Normal Voice Phonatory-based Quality: Yes: Normal Nasal Resonance: Normal Articulation: Yes: Precise Rate of Speech: Intact - Language/Auditory Comprehension Follows: Yes: 1 Stage Simple Commands (WFL), 2 Stage Simple Commands (WFL) Observation: Able to respond to yes/no queries: Yes, Yes/No Confusion: No, Comprehends Conversational Speech: Yes, Benefits from Slow Speech: No, Benefits from Repetiton: No, Benefits from Increased Volume of Speech: No - Language/Verbal Expression Able to Respond to Simple Queries: Yes: WNL Able to Communicate Wants and Needs: Yes: WNL Functional Communication Status: Yes: WNL Aware of Errors: Yes Attempts to Correct Errors: Yes Use of Gestures: No Written Expression: Not examined. Oral Expression: WFL Reading Comprehension: Not examined. Calculations: Not examined. Attention: Yes: Intact - Memory/Perception superintendent marine oil terminal Memory: Yes: WNL Short Term Memory: Yes: WNL - Swallow Evaluation/Bedside Assessment Current Nutritional Intake: Regular, Thin Liquids Oral Secretions: Yes: WFL Tracheostomy Present: No Patient on Ventilator: No Dentition: Yes: Edentulous (upper and lower jaw) Facial Symmetry at Rest: Symmetrical Facial Symmetry on Retraction: Symmetrical Facial Movement: Controlled Sensation: Normal Facial Comment: [facility] for speech and swallowing purposes. Jaw Position: Closed at Rest Against Resistance Opening: Normal Against Resistance Closing: Normal Pucker Lips: Normal Smile: Normal Lips, Comment: [facility] for speech and swallowing purposes. Lingual Movement: Normal Lingual Speed of Movement: Normal Lingual Movement Strgth Against Opposition: Normal Lingual Movement Characteristics: Normal Lingual Comment: [facility] for speech and swallowing purposes. Soft Palate Description: Normal Color, Normal Arch Hard Palate Description: Normal Color, Normal Arch Gag Reflex: Strong Velopharyngeal Movement: Normal Laryngeal Elevation: WFL Laryngeal Movement: Able to Palpate Needs Assistance: No Bolus Size: WFL Labial Seal: WFL Chewing: WFL Oral Prep Time: WFL Timing of Swallow: WFL Coughing/Throat Clear: No Change in Voice: No Other Findings/Remarks: 67 yo male seen by LINK TRAINER MECHANIC at bedside for swallow eval to rule out dysphagia. Pt is verbal A&Ox3 cooperative and follows directive without difficulty. Pt presents with ulcerative colitis and nephrolithiasis and was admtted to [facility] with dizziness and generalized weakness. PMHX includes CVA and CHANTE. Because of dx pt is consuming a specialized diet and has self reports a reduced appetite. Pt also reported feeling a little congested and presents with a cough during interview of clinical bedside eval. Pt given po trials of puree, soft and regular solids without assistance good acceptance, increased mastication time secondary to dental status, adequate A-P transport. Pharyngeal swallow appears timely with no coughing, changes in respiration or voicing after the swallow. PO trials of thin liquids without assistance were unremarkable for dysphagia or aspiration at this time. Recommendations - Speech Evaluation, Impression/Plan Impression: 67 yo male present with mild oral phase dysphagia (secondary to dental status) with no signs or symptoms of aspiration at bedside at this time. Penitentiary Goals: tolerate the least restrictive diet with out s/s of aspiration. Short Term Goals: tolerate the soft solids and thin liquids with out s/s of aspiration. - Dysphagia Impressions/Plan Swallowing Skills: [facility] Dysphagia Impressions: Mild Impairment (secondary to dental status.) *Silent aspiration: cannot be R/O at bedside Dysphagia Treatment Plan: Safe Rate, Elevate HOB during feed, Other (monitor pulmonary status and nutritional intake.) Dysphagia Evaluation Summary: Pt is able to tolerate puree and soft solids with thin liquids without assistance without s/s of aspiration at this time. Continue po feeding without dietary restriction due to dx of ulcerative colitis and nephrolothiasis. Results given verbally to storage battery charger Benna and to pcp via chart. Recommendations: Pulmonary Consult (consider secondary to patient report of congestion.) - Recommendations Diet Consistency: Dietary Restrictions/MD (ulcerative colitis and nephrolothiasis), 1 - 2 Soft Items (secondary to dental status.) Medication Administration: Crushed with applesauce Liquids: Thin Liquids Supplement: Nepro (if indicated)
[2017-04-25] MEDS: ATORVASTATIN CA 40 MG TABLET (FP) PO SCH (21:03)
[2017-04-25] MEDS ORDERED: ATORVASTATIN CA 40 MG TABLET (FP) PO SCH (22:00)
[2017-04-26] MEDS: SODIUM CHLORIDE 1,000 ML IV SCH (05:37)
[2017-04-26] MEDS: HEPARIN NA (PORCINE) 5,000 UNITS/ML 1ML VIAL SQ SCH ×3 (05:38→21:38)
[2017-04-26 08:19] LABS: MCH 30.4 pg (25.7-33.7); MCHC 34.2 g/dl (32.0-35.9); MEAN PLT VOLUME 8.9 fl (7.5-11.1); PLATELET COUNT 212 K/MM3 (134-434); RDW 14.5 % (11.9-15.9)
[2017-04-26 08:36] LABS: ANION GAP 11 (8-16); CALCIUM 8.7 mg/dL (8.5-10.1); CO2 23 mmol/L (21-32); CREATININE 1.3 mg/dL (0.7-1.3); GLUCOSE,RANDOM 79 mg/dL (74-106)
[2017-04-26] MEDS: ASPIRIN COATED 81 MG TABLET.EC PO SCH (09:45)
--- NOTE | 2017-04-26 12:13 | PN ---
Physical Exam: SUBJECTIVE: Patient stated the dizziness still persists in that he's too afraid to get up. Denies hearing loss, tinnitus, decreased vision, chest pain, palpitation, n/v, fever or chills. No acute event overnight. OBJECTIVE: Vital Signs Period Temp Pulse Resp BP Sys/Herndon Pulse Ox Last 24 Hr 97.9 F-98.3 F 58-77 18-20 131-158/67-102 95-98 GENERAL: AAO x 3, speak in full sentences, in no acute distress. HEAD: NC, AT EYES: pupils equal and reactive to light, horizontal nystagmus, sclera anicteric , conjunctiva clear ENT: Ears normal, nares patent, oropharynx clear without exudates, moist mucous membranes, uvula deviates to L NECK: Trachea midline, full range of motion, supple. LUNGS: CTAB HEART:RRR, S1, S2 without murmur, rub or gallop. ABDOMEN: Soft, nontender, nondistended, normoactive bowel sounds, no guarding, no rebound, no hepatosplenomegaly, no masses. EXTREMITIES: no edema, 5/5 in strength in LE and decreased sensation in LLE, full strength and intact sensation in R extremities NEUROLOGICAL: CN 5-12 intact, Normal speech, unsteady gait. PSYCH: Normal mood, normal affect. SKIN: Warm, dry, normal turgor, no rashes or lesions noted CBCD WBC 11.0 K/mm3 (4.0-10.0) H 04/26/17 05:10 RBC 5.47 M/mm3 (4.00-5.60) 04/26/17 05:10 Hgb 16.6 GM/dL (11.7-16.9) 04/26/17 05:10 Hct 48.7 % (35.4-49) 04/26/17 05:10 MCV 89.0 fl (80-96) 04/26/17 05:10 MCHC 34.2 g/dl (32.0-35.9) 04/26/17 05:10 RDW 14.5 % (11.9-15.9) 04/26/17 05:10 Plt Count 212 K/MM3 (134-434) 04/26/17 05:10 MPV 8.9 fl (7.5-11.1) 04/26/17 05:10 CMP Sodium 140 mmol/L (136-145) 04/26/17 05:10 Potassium 3.9 mmol/L (3.5-5.1) 04/26/17 05:10 Chloride 106 mmol/L (98-107) 04/26/17 05:10 Carbon Dioxide 23 mmol/L (21-32) 04/26/17 05:10 Anion Gap 11 (8-16) 04/26/17 05:10 BUN 21 mg/dL (7-18) H 04/26/17 05:10 Creatinine 1.3 mg/dL (0.7-1.3) 04/26/17 05:10 Creat Clearance w eGFR 50.40 (>60) 04/25/17 05:20 Calcium 8.7 mg/dL (8.5-10.1) 04/26/17 05:10 Total Bilirubin 0.8 mg/dL (0.2-1.0) D 04/25/17 05:20 AST 30 U/L (15-37) 04/25/17 05:20 ALT 24 U/L (12-78) 04/25/17 05:20 Alkaline Phosphatase 60 U/L (45-117) 04/25/17 05:20 Total Protein 6.6 g/dl (6.4-8.2) 04/25/17 05:20 Albumin 3.3 g/dl (3.4-5.0) L 04/25/17 05:20 Active Medications Generic Name Dose Route Start Last Admin Trade Name Freq PRN Reason Stop Dose Admin Aspirin 81 mg 04/25/17 10:00 04/26/17 09:45 Ecotrin - PO 81 mg DAILY MARÍA Administration Atorvastatin Calcium 80 mg 04/25/17 22:00 04/25/17 21:03 Lipitor - PO 80 mg HS MARÍA Administration Heparin Sodium (Porcine) 5,000 unit 04/25/17 06:00 04/26/17 05:38 Heparin - SQ 5,000 unit TID MARÍA Administration Sodium Chloride 1,000 mls @ 75 mls/hr 04/25/17 00:30 04/26/17 05:37 Normal Saline - IV 75 mls/hr ASDIR MARÍA Administration Sulfasalazine 1,000 mg 04/25/17 06:00 04/26/17 05:38 Azulfidine En-Tabs - PO 1,000 mg TID MARÍA Administration IMAGING ECHO on 04/25: 52% EF, no aortic stenosis CT head on 04/24: L lacunar infarct of uncertain chronicity ECG on 04/24: Sinus tachy @ 111 bpm, PACs, LAE, LAD, RBBB ASSESSMENT/PLAN: 67 yo M admitted to the hospital for dizziness. Dizziness - Likely cerebellum stroke with dehydration - f/u brain MRI/MRA - Permissive HTN (< 220/120) - Cont. asa 81mg and lipitor 80mg - PT Ulcerative colitis, chronic - Cont sulfasalazine Acute kidney injury - Unknown baseline - Improved significantly after hydration - Likely pre-renal 2/2 dehydration - Cont. to monitor Leukocytosis and polycythemia - Resolved FEN - Cont. IVF 75cc/hr - Normal lytes - Low fat/chol/Na diet Prophylaxis - DVT: heparin SQ - GI: not indicated Dispo - Awaiting MRI/MRA - Cont. to monitor on tele Visit type - Emergency Visit Emergency Visit: No - New Patient This patient is new to me today: No - Critical Care Critical Care patient: No - Discharge Referral Referred to [facility] Med P.C.: No
--- NOTE | 2017-04-26 14:16 | PN ---
Teaching Attending Note Name of Resident: Yuval Molina ATTENDING PHYSICIAN STATEMENT I saw and evaluated the patient. I reviewed the resident's note and discussed the case with the resident. I agree with the resident's findings and plan as documented. SUBJECTIVE: Patient has no dizziness at rest. He feels less dizzy when walking. OBJECTIVE: Vital Signs Period Temp Pulse Resp BP Sys/Herndon Pulse Ox Last 24 Hr 97.9 F-98.3 F 58-77 18-20 131-158/67-102 95-98 HEART: S1S2, RRR LUNGS: Clear ABDOMEN: Soft, non-tender, non-distended, normal BS EXTREMITIES: No edema NEUROLOGICAL: Alert, oriented, strength 5/5 in all extremities, sensation decreased in LLE ASSESSMENT AND PLAN: This is a 67 year old man with a history of ulcerative colitis, nephrolithiasis who presented to the ER with dizziness x 2 days. 1. Possible acute cerebellar CVA with dizziness - Head CT shows lacunar infarct of left caudate nucleus - Echocardiogram shows low normal LVEF, mild TR, trace to mild AR, mild NC - MRI/MRA of neck and brain ordered - Continue aspirin, Lipitor - Physical therapy 2. Hypertensive emergency - Improved 3. Uncontrolled HTN 4. Acute kidney injury - Likely secondary to poor oral intake - Improving with IV fluid 5. Probable stage 3 CKD 6. Leukocytosis - Likely reactive with hemoconcentration from poor oral intake - No evidence of infection - Improving with IV fluid 7. Polycythemia - Likely secondary to hemoconcentration from poor oral intake - Improved with IV fluid 8. Ulcerative colitis - Continue Sulfasalazine
[2017-04-26] MEDS ORDERED: PT OWN MED DRAWER 7, Y5N ONE (21:19)
[2017-04-26] MEDS: ATORVASTATIN CA 40 MG TABLET (FP) PO SCH (21:38)
[2017-04-27] MEDS: SODIUM CHLORIDE 1,000 ML IV SCH (00:30)
[2017-04-27] MEDS ORDERED: PT OWN MED DRAWER 7, Y5N ONE ×2 (06:16→21:21)
[2017-04-27] MEDS: HEPARIN NA (PORCINE) 5,000 UNITS/ML 1ML VIAL SQ SCH ×3 (06:28→21:24)
[2017-04-27 07:03] LABS: MCH 30.5 pg (25.7-33.7); MCHC 34.5 g/dl (32.0-35.9); MEAN CELL VOLUME 88.4 fl (80-96); MEAN PLT VOLUME 8.5 fl (7.5-11.1); PLATELET COUNT 221 K/MM3 (134-434); RDW 14.4 % (11.9-15.9); WHITE BLOOD COUNT 10.9 K/mm3 (4.0-10.0)
[2017-04-27 07:35] LABS: ANION GAP 13 (8-16); CALCIUM 9.1 mg/dL (8.5-10.1); CO2 22 mmol/L (21-32); GLUCOSE,RANDOM 94 mg/dL (74-106)
[2017-04-27 07:36] LABS: CREATININE 1.2 mg/dL (0.7-1.3)
[2017-04-27] MEDS: ASPIRIN COATED 81 MG TABLET.EC PO SCH (09:47)
--- NOTE | 2017-04-27 11:37 | PN ---
Physical Exam: SUBJECTIVE: Patient seen and examined OBJECTIVE: No new complaints still feels dizzy and lightheaded Has not been out of bed No headache Vital Signs Period Temp Pulse Resp BP Sys/Herndon Pulse Ox Last 24 Hr 97.7 F-98.4 F 53-74 18-22 137-176/68-92 97-97 GENERAL: The patient is awake, alert, and fully oriented, in no acute distress. HEAD: Normal with no signs of trauma. EYES: PERRL, extraocular movements intact, sclera anicteric, conjunctiva clear. No ptosis. ENT: Ears normal, nares patent, oropharynx clear without exudates, moist mucous membranes. NECK: Trachea midline, full range of motion, supple. LUNGS: Breath sounds equal, clear to auscultation bilaterally, no wheezes, no crackles, no accessory muscle use. HEART: Regular rate and rhythm, S1, S2 without murmur, rub or gallop. ABDOMEN: Soft, nontender, nondistended, normoactive bowel sounds, no guarding, no rebound, no hepatosplenomegaly, no masses. EXTREMITIES: 2+ pulses, warm, well-perfused, no edema. NEUROLOGICAL: Left sided weakness 4/5 PSYCH: Normal mood, normal affect. SKIN: Warm, dry, normal turgor, no rashes or lesions noted Laboratory Results - last 24 hr Active Medications Generic Name Dose Route Start Last Admin Trade Name Freq PRN Reason Stop Dose Admin Aspirin 81 mg 04/25/17 10:00 04/27/17 09:47 Ecotrin - PO 81 mg DAILY MARÍA Administration Atorvastatin Calcium 80 mg 04/25/17 22:00 04/26/17 21:38 Lipitor - PO 80 mg HS MARÍA Administration Heparin Sodium (Porcine) 5,000 unit 04/25/17 06:00 04/27/17 06:28 Heparin - SQ 5,000 unit TID MARÍA Administration Lisinopril 10 mg 04/28/17 10:00 Prinivil PO DAILY MARÍA Sulfasalazine 1,000 mg 04/25/17 06:00 04/27/17 06:30 Azulfidine En-Tabs - PO Not Given TID MARÍA ASSESSMENT/PLAN: This is a 67 year old man with dizziness x 2 days. 1. Possible acute CVA . Head CT shows lacunar infarct of left caudate nucleus. Echocardiogram shows low normal LVEF, mild TR, trace to mild AR, mild NM MRA of the head and neck shows absent flow in R vertebral artery. It is not clear based on MRA only wether its an occlusion vs congenital hypoplasia. - MRI of the brain and CTA for better evaluation,to see if CVA is in distribution of R vertebral artery - Continue aspirin, Lipitor - Physical therapy/awaiting 2. Uncontrolled HTN-needs appropriate control - will start on Lisinopril , monitor BP 3. Acute kidney injury - Likely secondary to poor oral intake - Improved , d/c IVF 4. Polycythemia - Likely secondary to hemoconcentration - Improved with IV fluid 5. Ulcerative colitis - Continue Sulfasalazine Discussed with Neurology Visit type - Emergency Visit Emergency Visit: Yes ED Registration Date: 04/24/17 Care time: The patient presented to the Emergency Department on the above date and was hospitalized for further evaluation of their emergent condition. - New Patient This patient is new to me today: Yes Date on this admission: 04/27/17 - Critical Care Critical Care patient: No - Discharge Referral Referred to [facility] Med P.C.: No
[2017-04-27] MEDS ORDERED: ENALAPRILAT DIHYDRATE 1.25 MG/1 ML VIAL IVPB PRN (15:00)
[2017-04-27] MEDS ORDERED: ENALAPRILAT DIHYDRATE 1.25 MG/1 ML VIAL IVPB SCH (15:00)
[2017-04-27] MEDS ORDERED: METOPROLOL TARTRATE 5 MG/5 ML VIAL IVPUSH ONE (17:11)
[2017-04-27] MEDS ORDERED: ENALAPRILAT DIHYDRATE 1.25 MG/1 ML VIAL IVPB ONE (18:00)
[2017-04-27] MEDS ORDERED: ONDANSETRON 4 MG/2 ML VIAL IVPB ONE (18:00)
[2017-04-27] MEDS: ATORVASTATIN CA 40 MG TABLET (FP) PO SCH (21:24)
[2017-04-28] MEDS ORDERED: PT OWN MED DRAWER 7, Y5N ONE (05:54)
[2017-04-28] MEDS: HEPARIN NA (PORCINE) 5,000 UNITS/ML 1ML VIAL SQ SCH ×3 (05:56→21:01)
[2017-04-28 06:42] LABS: BASOPHIL 0.5 % (0-2.0); EOSINOPHIL 0.3 % (0-4.5); MCH 30.1 pg (25.7-33.7); MEAN CELL VOLUME 88.6 fl (80-96); MEAN PLT VOLUME 9.1 fl (7.5-11.1); NEUTROPHILS 81.4 % (42.8-82.8); PLATELET COUNT 256 K/MM3 (134-434); RDW 14.4 % (11.9-15.9); WHITE BLOOD COUNT 12.9 K/mm3 (4.0-10.0)
[2017-04-28 07:08] LABS: ANION GAP 13 (8-16); CALCIUM 9.2 mg/dL (8.5-10.1); CO2 23 mmol/L (21-32); CREATININE 1.2 mg/dL (0.7-1.3); GLUCOSE,RANDOM 79 mg/dL (74-106)
--- NOTE | 2017-04-28 09:02 | PN ---
Progress Note (short form) - Note Progress Note: left sided weakness 67 year old male history of nephrolithiasis and colitis and came to ed for dizziness and generalized weakness. his friend noticed that his pseech was slurred. he felt dizzy and feel spinning . he is also feeling numb on left upper and lower extremity. inital ct scan was done it was normal and he has not seen any doctor in 8 years. 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 No known allergy Neurological Examiantion Alert oriented x 3, cranial nerve intact there is nystagmus on right side , there is dysmetria on left upper extremity no pronator drift today on april 28 lower extermity strength is normal sensation is diminished ion left side mri of brain and ct report reviewed Assessment- pontine stroke, due to small vessel disease, mostlikley vertebral occlusion is asymptomatic and it is opposite of stroke plan continue aspirin and statin bp monitoring neuro check swallow, pt and dvt prophylaxis would need rehab or outpatient PT, PT to decide. thanks for consult Alf Vasquez MD
[2017-04-28] MEDS ORDERED: LISINOPRIL 10 MG TABLET (FP) PO SCH (10:00)
[2017-04-28] MEDS: LISINOPRIL 10 MG TABLET (FP) PO SCH (10:05)
[2017-04-28] MEDS: ASPIRIN COATED 81 MG TABLET.EC PO SCH (10:05)
--- NOTE | 2017-04-28 10:38 | PN ---
Teaching Attending Note Name of Resident: Yuval Molina ATTENDING PHYSICIAN STATEMENT I saw and evaluated the patient. I reviewed the resident's note and discussed the case with the resident. I agree with the resident's findings and plan as documented. SUBJECTIVE: complaining of hickups , reports no improvement in weakness OBJECTIVE: Vital Signs Temperature 98.3 F 04/28/17 01:58 Pulse Rate 85 04/28/17 10:27 Respiratory Rate 20 04/28/17 01:58 Blood Pressure 166/85 04/28/17 05:00 O2 Sat by Pulse Oximetry (%) 94 L 04/28/17 10:27 NECK: Trachea midline, full range of motion, supple. LUNGS: CTAB HEART:RRR, S1, S2 without murmur, rub or gallop. ABDOMEN: Soft, nontender, nondistended, normoactive bowel sounds, no guarding, no rebound, no hepatosplenomegaly, no masses. EXTREMITIES: no edema, 5/5 in strength in LE and decreased sensation in LLE, full strength and intact sensation in R extremities NEUROLOGICAL: CN 5-12 intact, Normal speech, unsteady gait. PSYCH: Normal mood, normal affect. 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 This finding is probably at least partly chronic in nature. The intracranial and extracranial left vertebral artery demonstrates no discrete stenosis. No basilar artery stenosis is seen. No extracranial carotid arteries stenosis is identified. Multiple small chronic bilateral cerebellar infarcts are noted which are much better visualized on recently performed MRI. A small linear acute infarct within the slightly right paramedian aspect of the brainstem at the pontomedullary junction identified on MRI cannot appreciated on CT. ASSESSMENT AND PLAN: 1.Acute CVA . Head CT shows lacunar infarct of left caudate nucleus. Echocardiogram shows low normal LVEF, mild TR, trace to mild AR, mild UT MRA of the head and neck shows absent flow in R vertebral artery. It is not clear based on MRA only wether its an occlusion vs congenital hypoplasia. MRI brain and CTA as above . Considering complete chronic occlusion of vertebral artery there would be no benefit in re perfusion.Patient will be managed conservatively . - Continue aspirin, Lipitor - optimise BP control , will increase LIsinopril - Physical therapy evaluation and discharge planning 2. Uncontrolled HTN- - will increase Lisinopril 3. Acute kidney injury - Likely secondary to poor oral intake - Improved , d/c IVF 4. Polycythemia- consider OP follow up 5. Ulcerative colitis- stable - Continue Sulfasalazine Disposition - d/c to rehab when BP is better controlled
--- NOTE | 2017-04-28 12:48 | PN ---
Physical Exam: SUBJECTIVE: Patient still dizzy and feels weak on L side. BP both systolic and diastolic are elevated. No other acute event overnight. OBJECTIVE: Vital Signs Period Temp Pulse Resp BP Sys/Herndon Pulse Ox Last 24 Hr 97.8 F-98.8 F 51-114 - 159-182/72-108 94-98 GENERAL: AAO x 3, speak in full sentences, in no acute distress. HEAD: NC, AT EYES: pupils equal and reactive to light, sclera anicteric, conjunctiva clear ENT: Ears normal, nares patent, oropharynx clear without exudates, moist mucous membranes, uvula deviates to L NECK: Trachea midline, full range of motion, supple. LUNGS: CTAB HEART:RRR, S1, S2 without murmur, rub or gallop. ABDOMEN: Soft, nontender, nondistended, normoactive bowel sounds, no guarding, no rebound, no hepatosplenomegaly, no masses. EXTREMITIES: no edema, 4/5 in strength in LE and decreased sensation in LLE, full strength and intact sensation in R extremities NEUROLOGICAL: CN 5-12 intact, Normal speech, unsteady gait. PSYCH: Normal mood, normal affect. SKIN: Warm, dry, normal turgor, no rashes or lesions noted CBCD WBC 12.9 K/mm3 (4.0-10.0) H 04/28/17 05:20 RBC 5.74 M/mm3 (4.00-5.60) H 04/28/17 05:20 Hgb 17.3 GM/dL (11.7-16.9) H 04/28/17 05:20 Hct 50.9 % (35.4-49) H 04/28/17 05:20 MCV 88.6 fl (80-96) 04/28/17 05:20 MCHC 34.0 g/dl (32.0-35.9) 04/28/17 05:20 RDW 14.4 % (11.9-15.9) 04/28/17 05:20 Plt Count 256 K/MM3 (134-434) 04/28/17 05:20 MPV 9.1 fl (7.5-11.1) 04/28/17 05:20 CMP Sodium 140 mmol/L (136-145) 04/28/17 05:20 Potassium 4.2 mmol/L (3.5-5.1) 04/28/17 05:20 Chloride 104 mmol/L (98-107) 04/28/17 05:20 Carbon Dioxide 23 mmol/L (21-32) 04/28/17 05:20 Anion Gap 13 (8-16) 04/28/17 05:20 BUN 18 mg/dL (7-18) 04/28/17 05:20 Creatinine 1.2 mg/dL (0.7-1.3) 04/28/17 05:20 Creat Clearance w eGFR 50.40 (>60) 04/25/17 05:20 Calcium 9.2 mg/dL (8.5-10.1) 04/28/17 05:20 Total Bilirubin 0.8 mg/dL (0.2-1.0) D 04/25/17 05:20 AST 30 U/L (15-37) 04/25/17 05:20 ALT 24 U/L (12-78) 04/25/17 05:20 Alkaline Phosphatase 60 U/L (45-117) 04/25/17 05:20 Total Protein 6.6 g/dl (6.4-8.2) 04/25/17 05:20 Albumin 3.3 g/dl (3.4-5.0) L 04/25/17 05:20 Active Medications Generic Name Dose Route Start Last Admin Trade Name Freq PRN Reason Stop Dose Admin Aspirin 81 mg 04/25/17 10:00 04/28/17 10:05 Ecotrin - PO 81 mg DAILY MARÍA Administration Atorvastatin Calcium 80 mg 04/25/17 22:00 04/27/17 21:24 Lipitor - PO 80 mg HS MARÍA Administration Chlorpromazine HCl 25 mg 04/28/17 10:55 Thorazine - PO TID PRN NAUSEA Enalaprilat 1.25 mg 04/27/17 15:00 Vasotec Injection - IVPB Q6H-IV PRN BLOOD PRESSURE Heparin Sodium (Porcine) 5,000 unit 04/25/17 06:00 04/28/17 05:56 Heparin - SQ 5,000 unit TID MARÍA Administration Lisinopril 20 mg 04/28/17 10:00 04/28/17 10:05 Prinivil PO 20 mg DAILY MARÍA Administration Sulfasalazine 1,000 mg 04/25/17 06:00 04/28/17 05:56 Azulfidine En-Tabs - PO 1,000 mg TID MARÍA Administration IMAGING Neck CTA, Brain MRI/MRA on 04/27: acute/subacute ischemic infarct in R jeffy. Completely occluded R vertebral artery. ECHO on 04/25: 52% EF, no aortic stenosis CT head on 04/24: L lacunar infarct of uncertain chronicity ECG on 04/24: Sinus tachy @ 111 bpm, PACs, LAE, LAD, RBBB ASSESSMENT/PLAN: 67 yo M admitted to the hospital for dizziness. Dizziness - 2/2 CVA of R jeffy and R vertebral artery occlusion - Cont. asa 81mg, lisinopril 20mg and lipitor 80mg - PT HTN, uncontrolled - Increased lisinopril 10mg to 20mg daily - Cont. to monitor BP and Cr Ulcerative colitis, chronic - Cont sulfasalazine Acute kidney injury - Pre-renal - Resolved Leukocytosis and polycythemia - Cont. to monitor FEN - IVF d/c - Normal lytes - Low fat/chol/Na diet Prophylaxis - DVT: heparin SQ - GI: not indicated Dispo - Optimizing BP medications Visit type - Emergency Visit Emergency Visit: No - New Patient This patient is new to me today: No - Critical Care Critical Care patient: No
--- NOTE | 2017-04-28 15:56 | PN ---
Progress Note, DRUG SAFETY PHYSICIAN - Note Progress Note: Selected Entries 04/25/17 04/26/17 04/26/17 23:38 02:54 06:00 Breakfast Diet Tolerated Lunch Supper 100% Temperature 98.0 F 98.0 F 04/26/17 04/26/17 04/26/17 09:40 10:00 13:04 Breakfast 75% 100% Diet Tolerated Lunch Supper Temperature 98.3 F 04/26/17 04/26/17 04/27/17 14:00 17:23 06:00 Breakfast Diet Tolerated Lunch Supper Temperature 97.7 F 98.2 F 97.9 F 04/27/17 04/27/17 04/27/17 09:00 10:00 13:00 Breakfast 0 Diet Tolerated Refused Refused Lunch 0 Supper Temperature 98.4 F 04/27/17 04/27/17 04/27/17 13:54 17:00 18:20 Breakfast Diet Tolerated Poor Lunch Supper Temperature 98.8 F 97.8 F 97.9 F 04/28/17 04/28/17 04/28/17 01:58 10:00 10:32 Breakfast 0 Diet Tolerated Refused Lunch Supper Temperature 98.3 F 97.8 F 04/28/17 04/28/17 14:05 15:16 Breakfast Diet Tolerated Poor Lunch 25% Supper Temperature 97.7 F Laboratory Tests 04/24/17 04/25/17 04/26/17 20:00 00:45 05:10 WBC 20.0 H 17.2 H 11.0 H 04/27/17 04/28/17 05:00 05:20 WBC 10.9 H 12.9 H MRI- Acute/subacute cva Right Rbonson.Multiple infacts bilaterally cerebellum. Complete occlusion right vertebral artery. Vocal quality mildly hypophonic/dysphonic. Good articulation. Pt would like to continue or reg food. Missing dentition. Pt reports odynophagia (5 out of 1-10 scale) when swallowing liquids and hiccoughs when eating solids. He reports this as new symptoms. He has heartburn occasionally. Pt noted to hiccough without PO intake as well- CVA related? One instance of responsive cough with thin liquid. Monitor for PO tolerance, congestion, fever, silent aspiration
[2017-04-28] MEDS: chlorproMAZINE HCL 25 MG TABLET PO PRN (20:34)
[2017-04-28] MEDS: ATORVASTATIN CA 40 MG TABLET (FP) PO SCH (21:09)
[2017-04-29] MEDS: HEPARIN NA (PORCINE) 5,000 UNITS/ML 1ML VIAL SQ SCH ×3 (06:03→21:07)
[2017-04-29 06:57] LABS: MCH 30.1 pg (25.7-33.7); MCHC 33.9 g/dl (32.0-35.9); MEAN CELL VOLUME 88.9 fl (80-96); MEAN PLT VOLUME 8.9 fl (7.5-11.1); PLATELET COUNT 269 K/MM3 (134-434); RDW 14.7 % (11.9-15.9); WHITE BLOOD COUNT 11.9 K/mm3 (4.0-10.0)
[2017-04-29] MEDS: amLODIPine BESYLATE 5 MG TABLET (FP) PO SCH (09:31)
[2017-04-29] MEDS: LISINOPRIL 10 MG TABLET (FP) PO SCH (09:31)
[2017-04-29] MEDS: ASPIRIN COATED 81 MG TABLET.EC PO SCH (09:31)
--- NOTE | 2017-04-29 11:12 | PN ---
Teaching Attending Note Name of Resident: Yuval Molina ATTENDING PHYSICIAN STATEMENT I saw and evaluated the patient. I reviewed the resident's note and discussed the case with the resident. I agree with the resident's findings and plan as documented. SUBJECTIVE:currently asymptomatic. states he continues to feel weak on the Left side but improved since admission. had a bout of odynohagia yesterday when eating food and has experienced it intermittently since being hospitalized. denies CP, SOb,fever, chills, dysphagia, N/V/C/D, blurred vision OBJECTIVE: Last Vital Signs Temp Pulse Resp BP Pulse Ox 98.7 F 78 20 139/76 96 04/29/17 08:00 04/29/17 08:00 04/29/17 08:00 04/29/17 08:00 04/28/17 21:16 General NAD HEENT no oral plaques or ulcers, no tenderness to pharynx CV S1 S2 RRR no murmur/rub/gallop Lungs CTA B/L no wheezing/rales/rhonchi Neuro CN II-XII grossly intact. 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 Acute pontine CVA- clinically stable. improved strength. started on asa and statin. in setting of UC although it has been controlled for several years off medications. will d/w with neuro as possibly plavix might be better option in this setting. also asymptomatic vertebral occlusion was noted on neck MRA. no intervention at this time. would benefit from DESTINEY however has no insurance. SW and CM looking into [facility] cases, or will need to set up for outpatient PT/OT 2. HTN emergency-above goal BP. will start norvasc. cont lisinopril. monitor for improved control 3. CHANTE- likely due to dehydration. improved 4. Leukocytosis- no signs of infection. afebrile. no indication for abx at this time 5. Polycythemia- dehydration component. improved. at upper limit of normal. can be monitored by PMD and determine if workup is necessary if remains elevated 6. Odynophagia- 1 episode. has been having frequent hiccuping. if persists would recommend EGD as outpatient 7, UC- not on medications at home. started on sulfasalzine. last flare was 5 years ago. will need to f/u with GI. 8. discharge planning. would benefit from DESTINEY however has no insurance. SW looking into [facility] vs alternate options.
--- NOTE | 2017-04-29 11:24 | PN ---
Progress Note, DATA REPORTING ANALYST - Note Progress Note: Pt continues to report pain below sternum when swallowing liquids and solids and more hiccoughing following solids. He states he used to have heartburn once in a while but now has it daily. Veena/pharyngeal swallowing function overtly WNL. Poor PO intake. Selected Entries 04/28/17 04/28/17 04/28/17 01:58 10:00 10:32 Breakfast 0 Lunch Supper Temperature 98.3 F 97.8 F 04/28/17 04/28/17 04/28/17 14:05 15:16 17:00 Breakfast Lunch 25% Supper Temperature 97.7 F 98 F 04/28/17 04/28/17 04/29/17 19:48 20:35 02:00 Breakfast Lunch Supper 25% Temperature 98.3 F 98.6 F 04/29/17 04/29/17 06:00 08:00 Breakfast Lunch Supper Temperature 97.7 F 98.7 F Laboratory Tests 04/27/17 04/28/17 04/29/17 05:00 05:20 05:20 WBC 10.9 H 12.9 H 11.9 H REC: GI consult, r/o esophageal dysphagia Supplements as tolerated. Pt's concern is his ulcerative colitis/ RD recommended ensure clear.
--- NOTE | 2017-04-29 12:20 | DS ---
Physical Exam: SUBJECTIVE: No acute event overnight on cardiac cath lab manager or per nurse. OBJECTIVE: Vital Signs Period Temp Pulse Resp BP Sys/Herndon Pulse Ox Last 24 Hr 97.7 F-98.7 F 73-115 18-27 124-162/76-95 94-96 PHYSICAL EXAM GENERAL: AAO x 3, speak in full sentences, in no acute distress. HEAD: NC, AT EYES: pupils equal and reactive to light, sclera anicteric, conjunctiva clear ENT: Ears normal, nares patent, oropharynx clear without exudates, moist mucous membranes, uvula deviates to L NECK: Trachea midline, full range of motion, supple. LUNGS: CTAB HEART:RRR, S1, S2 without murmur, rub or gallop. ABDOMEN: Soft, nontender, nondistended, normoactive bowel sounds, no guarding, no rebound, no hepatosplenomegaly, no masses. EXTREMITIES: no edema, 4/5 in strength in LE and decreased sensation in LLE, full strength and intact sensation in R extremities NEUROLOGICAL: CN 5-12 intact, Normal speech, unsteady gait. PSYCH: Normal mood, normal affect. SKIN: Warm, dry, normal turgor, no rashes or lesions noted LABS Laboratory Results - last 24 hr 04/29/17 05:20 WBC 11.9 H RBC 5.68 H Hgb 17.1 H Hct 50.5 H MCV 88.9 MCHC 33.9 RDW 14.7 Plt Count 269 MPV 8.9 HOSPITAL COURSE: Date of Admission:04/24/17 67 y/o M w/PMH of ulcerative colitis and nephrolithiasis presents to the ER with 2 days of dizziness and generalized weakness. Neck CTA, Brain MRI/MRA on : acute/subacute ischemic infarct in R jeffy and completely occluded R vertebral artery. ECHO on 04/25 shows 52% EF, no aortic stenosis. Neurology was consulted and he's started on asa and high dose lipitor. In light of his ulcerative colitis, asa was switched to plavix. He's also found to have uncontrolled HTN for which he's started on lisinopril 20 mg and norvasc 5 mg daily. Patient was not on any medication for ulcerative colitis and likely also never followed up with GI on the management. He's started on sulfasalazine 1g TID. He's evaluated by physical therapy and would need rehab on discharge. However, due to the fact he does not have insurance, case finisher is working on [facility] vs. private out of pocket PT as outpatient. He's assigned with primary doctor (Dr. Carvalho) and instructed to follow up with him within a week to get a referral to see GI as soon as possible. He will also need to follow up with Dr. Vasquez. All his medications have been sent to his pharmacy and instruction is given on how to take them. Date of Discharge: 04/29/17 Minutes to complete discharge: 35 Discharge Summary Reason For Visit: CVA Condition: Stable - Instructions Diet, Activity, Other Instructions: Instruction for continuing care: You were admitted to the hospital because of stroke. You had CT and MRI of neck and MRI of brain which show one of your arteries to the brain is occluded but it 's likely chronic in nature and you had a stroke in the lower part of your brain. The important thing to do now is to prevent further stroke by taking blood thinner and medication to lower your cholesterol and blood pressure. You need to do the following after you are discharged: 1. tale plavix 75mg as blood thinner and lipitor 80mg daily to lower your cholesterol 2. take norvasc 5mg and lisinopril 20mg daily to lower your blood pressure 3. take sulfasalazine daily to keep your ulcerative colitis under control 4. see Dr. Carvalho within a week for follow up, he seems patients without insurance at an extremely low cost Referrals: Alf Vasquez MD [Staff Physician] - Abilio Carvalho MD [Staff Physician] - Disposition: [facility]ILITY - Home Medications Comprehensive Discharge Medication List: Ambulatory Orders Multivits,Ca,Min/Iron/FA/Lycop [Centrum Men's Tablet] 1 tab PO DAILY 04/25/17 Amlodipine Besylate [Norvasc -] 5 mg PO DAILY #14 tablet 04/29/17 Atorvastatin Ca [Lipitor] 80 mg PO HS #14 tab 04/29/17 Clopidogrel Bisulfate [Plavix -] 75 mg PO DAILY #14 tablet 04/29/17 Lisinopril [Prinivil] 20 mg PO DAILY #14 tablet 04/29/17 Sulfasalazine [Azulfidine En-Tabs -] 1,000 mg PO TID #42 tab 04/29/17 This patient is new to me today: No Emergency Visit: No Critical Care patient: No - Discharge Referral Referred to [facility] Med [facility] Yes Physician Referral: Abilio Echols MD ([facility])
[2017-04-29] MEDS: PANTOPRAZOLE 40 MG TABLET (FP) PO SCH (14:03)
[2017-04-29] MEDS: ATORVASTATIN CA 40 MG TABLET (FP) PO SCH (21:07)
[2017-04-30] MEDS: HEPARIN NA (PORCINE) 5,000 UNITS/ML 1ML VIAL SQ SCH (05:36)
[2017-04-30] MEDS ORDERED: MECLIZINE HCL 25 MG TABLET (FP) PO ONE (08:42)
[2017-04-30 10:30] VITALS: BP 144/65; PULSE 85; TEMP 97.6
[2017-04-30] MEDS: LISINOPRIL 10 MG TABLET (FP) PO SCH (10:30)
[2017-04-30] MEDS: PANTOPRAZOLE 40 MG TABLET (FP) PO SCH (10:30)
[2017-04-30] MEDS: ASPIRIN COATED 81 MG TABLET.EC PO SCH (10:30)
[2017-04-30] MEDS: amLODIPine BESYLATE 5 MG TABLET (FP) PO SCH (10:30)
[2017-04-30] MEDS: chlorproMAZINE HCL 25 MG TABLET PO PRN (10:30)
--- NOTE | 2017-04-30 10:30 | PN ---
Teaching Attending Note Name of Resident: Yuval Molina ATTENDING PHYSICIAN STATEMENT I saw and evaluated the patient. I reviewed the resident's note and discussed the case with the resident. I agree with the resident's findings and plan as documented. SUBJECTIVE:states he had episode of dizzyness this morning. happens occasionally and can not point at certain body position or time of day when it occurs. no pain on swallowing and able to tolerate dinner and breakfast without difficulty. denies CP, SOB,fever, chills, N/V/C/D, odynophagia or dysphagia OBJECTIVE: Last Vital Signs Temp Pulse Resp BP Pulse Ox 97.8 F 71 20 129/68 95 04/30/17 06:00 04/30/17 06:00 04/30/17 06:00 04/30/17 06:00 04/29/17 20:57 General NAD Neuro CN II-XII grossly intact. 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 Acute pontine CVA- clinically stable. improved strength. intermittent dizzyness, spoke with neuro who states should improve. to give meclizine prn for dizzyness. given this AM with good effect. asa switched to plavix due to UC hx. cont statin. will need neuro f/u as outpatient. 2. HTN emergency-improved. cont lisinopril and norvasc 3. CHANTE- likely due to dehydration. improved 4. Leukocytosis- no signs of infection. afebrile. no indication for abx at this time 5. Polycythemia- dehydration component. improved. at upper limit of normal. can be monitored by PMD and determine if workup is necessary if remains elevated 6. Odynophagia- now resolved. likley due to frequent hiccups on presentation due to CVA. improved. tolerating diet. if persists would recommend EGD as outpatient 7, UC- not on medications at home. started on sulfasalzine. last flare was 5 years ago. will need to f/u with GI. 8. d/c home with [facility] and home PT/OT. RW on discharge. explained to pt that optimally he should go to [facility] for aggressive PT and would have quicker improvement. unfortunately does not have insurance. told by CM that pt does have funds to pay for DESTINEY but pt states he does not want to pay for rehab. educated that his improvement may dramatically improve with DESTINEY. verbalized understanding and agreement. spoke with neighbor and her and explained that unfortunately we can not "just use his debit card" with out his consent to pay for rehab although we agree it is a better option. explained pt will be discharged today.
== END 2017-04-30 13:50 | disposition home or self-care (01) | DRG 45 ==
LOC: JER 19:21 → JERBED 21:48 → J2W 04-25 00:07
PROVIDERS: ADMIT Internal Medicine; ATTEND Internal Medicine
DX: I63.9 Cerebral infarction, unspecified (principal); I45.10 Unspecified right bundle-branch block; N17.9 Acute kidney failure, unspecified; E86.0 Dehydration; K51.90 Ulcerative colitis, unspecified, without complications; N20.0 Calculus of kidney; D75.1 Secondary polycythemia; I16.1 Hypertensive emergency; D72.829 Elevated white blood cell count, unspecified; I12.9 Hypertensive chronic kidney disease with stage 1 through stage 4 chronic kidney disease, or unspecified chronic kidney disease; N18.3 Chronic kidney disease, stage 3 (moderate); I65.01 Occlusion and stenosis of right vertebral artery; R13.10 Dysphagia, unspecified; R29.702 NIHSS score 2
CPT/HCPCS: 36415; 70450-TC; 70498-TC; 70545-TC; 70548-TC; 70551-TC; 71010-TC; 80048; 80053; 80061; 81003; 81015; 83721; 83735; 84443; 85025; 85027; 85610; 85651; 90670; 93005; 93010; 93306-TC; 93880-TC; 94761; 97116-GP; 97161-GP; 99283-25; A9576; J1644